=== PATIENT | female | born 1935 | race Caucasian/White ===

== ENCOUNTER 2024-03-26 09:39 | Emergency (ER) | payer MEDICARE ==
[~2024-03-26] VITALS: Ht 162.6 cm; Wt 74.8 kg
[2024-03-26] MEDS: POTASSIUM BICARBONATE/CIT AC 25 MEQ TABLET.EFF PO ONE (10:30)
[2024-03-26] MEDS: DILTIAZEM HCL 25 MG IV IV ONE ×3 (10:30→16:10)
[2024-03-26] MEDS: MAGNESIUM SULFATE/D5W 100 ML IV SCH (10:30)
[2024-03-26] MEDS ORDERED: MAGNESIUM SULFATE/D5W 300 ML ONE (10:34)
[2024-03-26] MEDS ORDERED: DILTIAZEM HCL 25 MG IV ONE ×3 (10:35→15:51)
[2024-03-26] MEDS ORDERED: PROBIOTIC PO (10:36)
[2024-03-26] MEDS ORDERED: GABA-532 PO (10:36)
[2024-03-26] MEDS ORDERED: NIFE-34 PO (10:36)
[2024-03-26] MEDS ORDERED: LOSA100T31 PO (10:36)
[2024-03-26] MEDS ORDERED: PYRI50CA PO (10:36)
[2024-03-26] MEDS ORDERED: OMEP20CA15 PO (10:36)
[2024-03-26] MEDS ORDERED: CYAN-28 PO (10:36)
[2024-03-26] MEDS ORDERED: ESTR0.3T3 PO (10:36)
[2024-03-26] MEDS ORDERED: POTA10TA21 PO (10:36)
[2024-03-26] MEDS ORDERED: CHOL2000 PO (10:36)
[2024-03-26] MEDS ORDERED: MULT-594 PO (10:36)
[2024-03-26] MEDS ORDERED: TRIA1CAP6 PO (10:36)
[2024-03-26] MEDS ORDERED: LEVO112T5 PO (10:36)
[2024-03-26] MEDS ORDERED: GINK120T4 PO (10:36)
[2024-03-26] MEDS ORDERED: MAGN400C PO (10:36)
[2024-03-26] MEDS ORDERED: FLEC100T2 PO (10:36)
[2024-03-26] MEDS ORDERED: APIX5TAB4 PO (10:36)
[2024-03-26] MEDS ORDERED: OMEG1CAP74 PO (10:36)
[2024-03-26] MEDS ORDERED: POTASSIUM BICARBONATE/CIT AC 25 MEQ TABLET.EFF ONE (10:36)
[2024-03-26 10:45] LABS: BASOPHILS % (AUTO) 0.3 % (0.0-2.0); EOSINOPHILS % (AUTO) 0.1 % (0.0-7.0); HEMATOCRIT 43.3 % (31.2-41.9); HEMOGLOBIN 14.4 g/dL (10.9-14.3); LYMPHOCYTES # (AUTO) 0.7 K/uL (0.8-4.8); LYMPHOCYTES % (AUTO) 7.6 % (20.5-51.5); MEAN CORPUSCULAR HEMOGLOBIN 29.4 uug (24.7-32.8); MEAN CORPUSCULAR HGB CONC 33 g/dL (32.3-35.6); MEAN CORPUSCULAR VOLUME 88.4 fL (75.5-95.3); MONOCYTES # (AUTO) 0.7 K/uL (0.1-1.30); MONOCYTES % (AUTO) 8.2 % (0.0-11.0); NEUTROPHILS # (AUTO) 7.2 K/uL (1.8-8.9); NEUTROPHILS % (AUTO) 83.8 % (38.5-71.5); PLATELET COUNT (AUTO) 214 K/uL (179-408); RED CELL DISTRIBUTION WIDTH 14.2 % (12.3-17.7); WHITE BLOOD COUNT (AUTO) 8.6 K/uL (3.8-11.8)
[2024-03-26 10:49] LABS: DIFFERENTIAL COMMENT 1
[2024-03-26 11:00] LABS: ALANINE AMINOTRANSFERASE 49 U/L (14-59); ALBUMIN 2.6 g/dL (3.4-5.0); ALKALINE PHOSPHATASE 95 U/L (50-136); ASPARTATE AMINOTRANSFERASE 53 U/L (15-37); BILIRUBIN,DIRECT 0.1 mg/dL (0.0-0.2); BILIRUBIN,TOTAL 0.4 mg/dL (0.2-1.0); CALCIUM 8.7 mg/dL (8.5-10.1); CARBON DIOXIDE 24 mmol/L (21-32); CHLORIDE 95 mmol/L (98-107); CREATININE 1.1 mg/dL (0.6-1.3); GLUCOSE 125 mg/dL (74-106); POTASSIUM 3.7 mmol/L (3.5-5.1); SODIUM SERUM 131 mmol/L (136-145); TOTAL PROTEIN, SERUM 6.9 g/dL (6.4-8.2); UREA NITROGEN, BLOOD 25 mg/dL (7-18)
[2024-03-26 11:44] LABS: *BLOOD, URINE NEGATIVE (NEGATIVE); *CLARITY,URINE CLEAR (CLEAR); *COLOR,URINE YELLOW (YELLOW); *KETONES,URINE 1+ (NEGATIVE); *PROTEIN,URINE 2+ (NEGATIVE); *UROBILINOGEN,URINE 0.2 E.U./dl (NORMAL); LEUKOCYTE ESTERASE ,URINE NEGATIVE (NEGATIVE); NITRITE, URINE NEGATIVE (NEGATIVE); UGLUCOSE NEGATIVE (NEGATIVE)
[2024-03-26 12:07] LABS: *BILIRUBIN,URIN 1+ (NEGATIVE)
[2024-03-26 12:55] LABS: BACTERIA,URINE MANY /HPF (NONE SEEN); SQUAMOUS EPITHELIAL CELL,UR FEW /HPF (NONE SEEN); URINE AMORPHOUS URATE MODERATE /HPF; WBC,URINE 0-3 /HPF (0-3)
[2024-03-26] MEDS: IV NORMAL SALINE 500 ML IV ONE ×2 (13:50→16:10)
[2024-03-26] MEDS ORDERED: PROPOFOL 200 MG/20 ML BOTTLE ONE (15:55)
[2024-03-26] MEDS ORDERED: FENTANYL CITRATE 100 MCG/2 ML AMPUL ONE (15:56)
[2024-03-26] MEDS: FENTANYL CITRATE 100 MCG/2 ML AMPUL IV ONE (16:14)
[2024-03-26] MEDS: PROPOFOL 1,000 MG/100 ML BOTTLE IV ONE (16:14)
[2024-03-26 18:16] VITALS: BP 122/50; TEMP 97.6; O2SAT 96
[2024-03-28 08:53] LABS: BASOPHILS % (AUTO) 0.5 % (0.0-2.0); EOSINOPHILS % (AUTO) 0.2 % (0.0-7.0); HEMATOCRIT 43.6 % (31.2-41.9); HEMOGLOBIN 14.7 g/dL (10.9-14.3); LYMPHOCYTES # (AUTO) 2.3 K/uL (0.8-4.8); LYMPHOCYTES % (AUTO) 39.1 % (20.5-51.5); MEAN CORPUSCULAR HGB CONC 34 g/dL (32.3-35.6); MEAN CORPUSCULAR VOLUME 88.9 fL (75.5-95.3); MONOCYTES # (AUTO) 0.5 K/uL (0.1-1.30); MONOCYTES % (AUTO) 9.4 % (0.0-11.0); NEUTROPHILS % (AUTO) 50.8 % (38.5-71.5); PLATELET COUNT (AUTO) 234 K/uL (179-408); RED CELL DISTRIBUTION WIDTH 14.6 % (12.3-17.7); WHITE BLOOD COUNT (AUTO) 5.8 K/uL (3.8-11.8)
[2024-03-28 09:02] LABS: MAGNESIUM 2.4 mg/dL (1.8-2.4)
[2024-03-28 09:03] LABS: CALCIUM 8.9 mg/dL (8.5-10.1); CARBON DIOXIDE 29 mmol/L (21-32); CHLORIDE 104 mmol/L (98-107); CREATININE 1.1 mg/dL (0.6-1.3); GLUCOSE 100 mg/dL (74-106); POTASSIUM 4.7 mmol/L (3.5-5.1); SODIUM SERUM 140 mmol/L (136-145); UREA NITROGEN, BLOOD 24 mg/dL (7-18)
[2024-03-28 09:04] LABS: DIFFERENTIAL COMMENT 1
[2024-03-28 09:16] LABS: ALANINE AMINOTRANSFERASE 44 U/L (14-59); ALBUMIN 2.8 g/dL (3.4-5.0); ALKALINE PHOSPHATASE 97 U/L (50-136); ASPARTATE AMINOTRANSFERASE 47 U/L (15-37); BILIRUBIN,DIRECT 0.1 mg/dL (0.0-0.2); BILIRUBIN,TOTAL 0.3 mg/dL (0.2-1.0); NT-PRO BNP 621 pg/mL (0-125); THYROID STIMULATING HORMONE 8.042 mIU/mL (0.358-3.740)
[2024-04-01] MEDS ORDERED: MAGN400T30 PO (14:54)
[2024-04-01] MEDS ORDERED: BENZ-38 PO (14:54)
[2024-04-01] MEDS ORDERED: FLEC100T3 PO (14:54)
[2024-04-01] MEDS ORDERED: PYRI100T18 PO (14:54)
[2024-04-01] MEDS ORDERED: GUAI600T53 PO (14:54)
[2024-04-01] MEDS ORDERED: APIX5TAB PO (14:54)
[2024-04-01] MEDS ORDERED: CYAN-51 PO (14:54)
[2024-04-01] MEDS ORDERED: LEVO112T5 PO (14:54)
[2024-04-01] MEDS ORDERED: TRIA1TAB5 PO (14:54)
[2024-04-01] MEDS ORDERED: LOSA50TA3 PO (14:54)
[2024-04-01] MEDS ORDERED: CHOL100062 PO (14:54)
== END 2024-03-26 18:18 | disposition home or self-care (01) ==
LOC: ER 09:39
DX: I48.92 Unspecified atrial flutter (principal); R55 Syncope and collapse; B34.9 Viral infection, unspecified; R19.7 Diarrhea, unspecified; Z79.01 Long term (current) use of anticoagulants; Z79.890 Hormone replacement therapy; Z79.899 Other long term (current) drug therapy; Z88.5 Allergy status to narcotic agent
CPT/HCPCS: 99291; 92960; 96365; 96366; 96375; 96376; J3490 ×3; J3475; J3010; J7040 ×2; 36415; 83605; 83735; 84443; 84484; 85025; 85730; A4606; A4663

== ENCOUNTER 2024-03-28 07:40 | Inpatient (IN) | payer MEDICARE ==
[~2024-03-28] VITALS: Ht 162.6 cm; Wt 76.2 kg
[~2024-03-28 07:40] MED LIST: APIX5TAB4 PO; CHOL2000 PO; CYAN-28 PO; ESTR0.3T3 PO; FLEC100T2 PO; GABA-532 PO; GINK120T4 PO; LEVO112T5 PO; LOSA100T31 PO; MAGN400C PO; MULT-594 PO; NIFE-34 PO; OMEG1CAP74 PO; OMEP20CA15 PO; POTA10TA21 PO; PROBIOTIC PO; PYRI50CA PO; TRIA1CAP6 PO
[2024-03-28] MEDS: FLECAINIDE ACETATE 100 MG TABLET PO ONE (09:05)
[2024-03-28] MEDS: IV NORMAL SALINE 500 ML BAG IV ONE (10:39)
[2024-03-28] MEDS ORDERED: ACETAMINOPHEN 325 MG TABLET PO PRN (13:15)
[2024-03-28] MEDS ORDERED: MAGNESIUM HYDROXIDE 30 ML LIQUID UDC PO PRN (13:15)
[2024-03-28] MEDS ORDERED: REMEDY ESSENTIAL ZINC PASTE 113 GM TP PRN (13:15)
[2024-03-28] MEDS ORDERED: HOME MED MISCELLANEOUS XX SCH ×6 (13:30)
[2024-03-28] MEDS ORDERED: GABAPENTIN 100 MG CAPSULE ONE (14:36)
[2024-03-28] MEDS ORDERED: LEVOTHYROXINE SODIUM 112 MCG TABLET ONE (14:36)
[2024-03-28] MEDS ORDERED: MAGNESIUM OXIDE 400 MG TABLET ONE (14:36)
[2024-03-28] MEDS: MAGNESIUM OXIDE 400 MG TABLET PO SCH (14:45)
[2024-03-28] MEDS: LEVOTHYROXINE SODIUM 112 MCG TABLET PO SCH (14:45)
[2024-03-28] MEDS: GABAPENTIN 100 MG CAPSULE PO SCH (14:45)
[2024-03-28] MEDS ORDERED: MAGNESIUM OXIDE 400 MG TABLET PO SCH (15:40)
[2024-03-28] MEDS ORDERED: LEVOTHYROXINE SODIUM 112 MCG TABLET PO SCH (15:41)
[2024-03-28] MEDS ORDERED: FLECAINIDE ACETATE 100 MG TABLET PO SCH (17:00)
[2024-03-28] MEDS ORDERED: CHOLECALCIFEROL 1,000 UNIT TABLET ONE (18:35)
[2024-03-28 19:32] VITALS: BP 134/52; TEMP 98.7; O2SAT 93
[2024-03-28] MEDS: CYANOCOBALAMIN 1,000 MCG TABLET PO SCH (20:36)
[2024-03-28] MEDS: CHOLECALCIFEROL 1,000 UNIT TABLET PO SCH (20:36)
[2024-03-28] MEDS: APIXABAN 5 MG TABLET PO SCH (20:38)
[2024-03-28] MEDS: LOSARTAN POTASSIUM 50 MG TABLET PO SCH (20:40)
[2024-03-28] MEDS: NIFEdipine XL 60 MG TABSR PO SCH (21:15)
[2024-03-29] MEDS: FLECAINIDE ACETATE 100 MG TABLET PO SCH ×2 (00:04→17:22)
[2024-03-29 00:24] VITALS: BP 137/89; TEMP 97.9; O2SAT 92
[2024-03-29 04:29] VITALS: BP 123/69; TEMP 97.9; O2SAT 91
[2024-03-29] MEDS: LEVOTHYROXINE SODIUM 112 MCG TABLET PO SCH (06:07)
[2024-03-29 07:09] LABS: BASOPHILS % (AUTO) 0.4 % (0.0-2.0); EOSINOPHILS % (AUTO) 0.1 % (0.0-7.0); HEMATOCRIT 39.7 % (31.2-41.9); HEMOGLOBIN 13.6 g/dL (10.9-14.3); LYMPHOCYTES # (AUTO) 1.9 K/uL (0.8-4.8); LYMPHOCYTES % (AUTO) 27.5 % (20.5-51.5); MEAN CORPUSCULAR HGB CONC 34 g/dL (32.3-35.6); MEAN CORPUSCULAR VOLUME 87.9 fL (75.5-95.3); MONOCYTES # (AUTO) 0.6 K/uL (0.1-1.30); MONOCYTES % (AUTO) 9.1 % (0.0-11.0); NEUTROPHILS # (AUTO) 4.4 K/uL (1.8-8.9); NEUTROPHILS % (AUTO) 62.9 % (38.5-71.5); PLATELET COUNT (AUTO) 210 K/uL (179-408); RED BLOOD CELL COUNT(AUTO) 4.51 MIL/uL (3.63-4.92); RED CELL DISTRIBUTION WIDTH 14.2 % (12.3-17.7)
[2024-03-29 07:26] LABS: CALCIUM 8.4 mg/dL (8.5-10.1); CARBON DIOXIDE 27 mmol/L (21-32); CHLORIDE 104 mmol/L (98-107); CREATININE 0.8 mg/dL (0.6-1.3); GLUCOSE 90 mg/dL (74-106); PHOSPHOROUS 2.8 mg/dL (2.5-4.9); POTASSIUM 4.1 mmol/L (3.5-5.1); SODIUM SERUM 138 mmol/L (136-145); UREA NITROGEN, BLOOD 16 mg/dL (7-18)
[2024-03-29 07:29] LABS: DIFFERENTIAL COMMENT 1
[2024-03-29 07:42] VITALS: BP 119/49; TEMP 97.2; O2SAT 96
[2024-03-29] MEDS ORDERED: FLECAINIDE ACETATE 100 MG TABLET PO SCH (09:00)
[2024-03-29] MEDS: TRIAMTERENE/HCTZ 75-50 MG TABLET PO SCH (09:25)
[2024-03-29] MEDS: PYRIDOXINE HCL 100 MG TABLET PO SCH (09:28)
[2024-03-29] MEDS: POTASSIUM CITRATE 10 MEQ PO SCH (09:28)
[2024-03-29] MEDS: MULTIVITAMINS,THERAPEUTIC TABLET PO SCH (09:28)
[2024-03-29] MEDS: [UNRECOGNIZED DRUG - OTHER] PO SCH (09:28)
[2024-03-29 11:52] VITALS: BP 136/53; TEMP 98.5; O2SAT 97
[2024-03-29] MEDS ORDERED: ONDANSETRON 4 MG/2 ML VIAL IV PRN (12:45)
[2024-03-29] MEDS: ONDANSETRON 4 MG/2 ML VIAL IV PRN (12:56)
[2024-03-29] MEDS: METOPROLOL TARTRATE 25 MG TABLET PO SCH (12:57)
[2024-03-29] MEDS: GUAIFENESIN/DEXTROMETHORPHAN 5 ML UDC PO PRN (14:09)
[2024-03-29 15:49] VITALS: BP 113/62; TEMP 97.6; O2SAT 97
[2024-03-29] MEDS: MAGNESIUM OXIDE 400 MG TABLET PO SCH (18:09)
[2024-03-29 19:00] VITALS: BP 106/55; TEMP 98.5; O2SAT 96
[2024-03-30] VITALS (7 sets, daily range): BP systolic 100–133; BP diastolic 51–65; TEMP 97.7–98.3; O2SAT 93–97
[2024-03-30 10:07] LABS: BASOPHILS % (AUTO) 0.3 % (0.0-2.0); EOSINOPHILS % (AUTO) 0.3 % (0.0-7.0); HEMATOCRIT 39.2 % (31.2-41.9); HEMOGLOBIN 13.3 g/dL (10.9-14.3); LYMPHOCYTES # (AUTO) 2.2 K/uL (0.8-4.8); LYMPHOCYTES % (AUTO) 33.7 % (20.5-51.5); MEAN CORPUSCULAR HGB CONC 34 g/dL (32.3-35.6); MEAN CORPUSCULAR VOLUME 88.1 fL (75.5-95.3); MONOCYTES # (AUTO) 0.7 K/uL (0.1-1.30); MONOCYTES % (AUTO) 11.4 % (0.0-11.0); NEUTROPHILS # (AUTO) 3.5 K/uL (1.8-8.9); NEUTROPHILS % (AUTO) 54.3 % (38.5-71.5); PLATELET COUNT (AUTO) 204 K/uL (179-408); RED BLOOD CELL COUNT(AUTO) 4.44 MIL/uL (3.63-4.92); RED CELL DISTRIBUTION WIDTH 14.1 % (12.3-17.7); WHITE BLOOD COUNT (AUTO) 6.4 K/uL (3.8-11.8)
[2024-03-30 10:15] LABS: DIFFERENTIAL COMMENT 1
[2024-03-30 10:16] LABS: CALCIUM 8.1 mg/dL (8.5-10.1); CARBON DIOXIDE 27 mmol/L (21-32); CHLORIDE 103 mmol/L (98-107); GLUCOSE 107 mg/dL (74-106); MAGNESIUM 1.8 mg/dL (1.8-2.4); POTASSIUM 4.5 mmol/L (3.5-5.1); SODIUM SERUM 138 mmol/L (136-145); UREA NITROGEN, BLOOD 20 mg/dL (7-18)
[2024-03-30] MEDS: ATENOLOL 50 MG TABLET PO SCH (17:43)
[2024-03-31] VITALS (7 sets, daily range): BP systolic 100–132; BP diastolic 45–67; TEMP 97.6–98.4; O2SAT 94–98
[2024-03-31] MEDS: BENZONATATE 100 MG CAPSULE PO SCH (04:59)
[2024-03-31 09:18] LABS: CALCIUM 8.6 mg/dL (8.5-10.1); CARBON DIOXIDE 30 mmol/L (21-32); CHLORIDE 100 mmol/L (98-107); GLUCOSE 125 mg/dL (74-106); MAGNESIUM 1.8 mg/dL (1.8-2.4); POTASSIUM 4.3 mmol/L (3.5-5.1); SODIUM SERUM 135 mmol/L (136-145); UREA NITROGEN, BLOOD 21 mg/dL (7-18)
[2024-03-31 13:29] LABS: *BILIRUBIN,URIN NEGATIVE (NEGATIVE); *BLOOD, URINE NEGATIVE (NEGATIVE); *CLARITY,URINE CLEAR (CLEAR); *COLOR,URINE YELLOW (YELLOW); *KETONES,URINE NEGATIVE (NEGATIVE); *PROTEIN,URINE NEGATIVE (NEGATIVE); *UROBILINOGEN,URINE 0.2 E.U./dl (NORMAL); LEUKOCYTE ESTERASE ,URINE NEGATIVE (NEGATIVE); NITRITE, URINE NEGATIVE (NEGATIVE); UGLUCOSE NEGATIVE (NEGATIVE)
[2024-03-31] MEDS: ENSURE ENLIVE (VAN) 240 ML LIQUID PO SCH (17:28)
[2024-04-01 00:10] VITALS: BP 127/63; TEMP 97.7; O2SAT 97
[2024-04-01 00:23] VITALS: O2SAT 97
[2024-04-01 04:59] VITALS: BP 123/66; TEMP 97.9; O2SAT 95
[2024-04-01 07:35] VITALS: BP 133/72; TEMP 97.6; O2SAT 94
[2024-04-01 11:27] VITALS: BP 140/75; TEMP 98; O2SAT 96
[2024-04-01] MEDS: GUAIFENESIN LA 600 MG TABLET.SA PO SCH (12:25)
[2024-04-01] MEDS ORDERED: MAGN400T30 PO (14:54)
[2024-04-01] MEDS ORDERED: CYAN-51 PO (14:54)
[2024-04-01] MEDS ORDERED: LEVO112T5 PO (14:54)
[2024-04-01] MEDS ORDERED: APIX5TAB PO (14:54)
[2024-04-01] MEDS ORDERED: GUAI600T53 PO (14:54)
[2024-04-01] MEDS ORDERED: BENZ-38 PO (14:54)
[2024-04-01] MEDS ORDERED: PYRI100T18 PO (14:54)
[2024-04-01] MEDS ORDERED: CHOL100062 PO (14:54)
[2024-04-01] MEDS ORDERED: LOSA50TA3 PO (14:54)
[2024-04-01] MEDS ORDERED: FLEC100T3 PO (14:54)
[2024-04-01] MEDS ORDERED: TRIA1TAB5 PO (14:54)
== END 2024-04-01 16:30 | disposition home or self-care (01) | DRG 310 ==
LOC: ER 07:40 → TRANSITION 15:05 → TELE3 19:55 → MEDSURG3 04-01 10:09
PROVIDERS: ADMIT Nurse Practitioner Acute Care; ATTEND Nurse Practitioner Acute Care
DX: I48.0 Paroxysmal atrial fibrillation (principal); E66.9 Obesity, unspecified; Z68.28 Body mass index [BMI] 28.0-28.9, adult; I10 Essential (primary) hypertension; E78.5 Hyperlipidemia, unspecified; E03.9 Hypothyroidism, unspecified; Z90.710 Acquired absence of both cervix and uterus; Z79.01 Long term (current) use of anticoagulants; K21.9 Gastro-esophageal reflux disease without esophagitis; R79.89 Other specified abnormal findings of blood chemistry
CPT/HCPCS: 36415; 71045; 83605; 83735; 84100; 84443; 84484; 85025; 85730; 93005; 93307; G0378; J2405; J7040